=== PATIENT | female | born 1995 | race American Indian/Alaskan Native ===

== ENCOUNTER 2020-07-07 14:32 | Emergency (ER) | payer MEDICAID ==
--- NOTE | 2020-07-07 17:32 | Emergency Department Report ---
ED Abdominal Pain HPI - General Chief Complaint: Pain General Stated Complaint: FOOT/ABD/BACK PAIN Time Seen by Provider: 07/07/20 17:10 Source: patient Mode of arrival: Ambulatory Limitations: No Limitations - History of Present Illness Initial Comments: 24-year-old -[place] female with the past medical history of recurrent acid reflux off and on for the past few years asthma department complaining of progressively worsening onset not been able to get in with a primary care provider. Pain is now radiating to the right upper quadrant and radiates through to her back associated with nausea vomiting and fever sensations off and on. Ports no dysuria no hematuria no chest pain, palpitations, shortness of breath. MD Complaint: abdominal pain Radiation: none Migration to: no migration Quality: dull Consistency: constant Improves With: nothing Worsens With: nothing Associated Symptoms: denies other symptoms ED Review of Systems ROS: Stated complaint: FOOT/ABD/BACK PAIN Other details as noted in HPI Comment: All other systems reviewed and negative ED Past Medical Hx - Past Medical History Hx Hypertension: Yes Hx Asthma: Yes ED Physical Exam - General Limitations: No Limitations General appearance: alert, in no apparent distress - Head Head exam: Present: atraumatic, normocephalic - Eye Eye exam: Present: normal appearance, PERRL, EOMI Pupils: Present: normal accommodation - ENT ENT exam: Present: normal exam, mucous membranes moist - Neck Neck exam: Present: normal inspection - Respiratory Respiratory exam: Present: normal lung sounds bilaterally. Absent: respiratory distress, wheezes - Cardiovascular Cardiovascular Exam: Present: regular rate, normal rhythm. Absent: systolic murmur, diastolic murmur, rubs, gallop - GI/Abdominal GI/Abdominal exam: Present: soft, tenderness (Tenderness to the right upper quadrant), normal bowel sounds, other (Rios sign no). Absent: guarding, rebound, hyperactive bowel sounds, organomegaly, bruit - Extremities Exam Extremities exam: Present: normal inspection, normal capillary refill - Back Exam Back exam: Present: normal inspection. Absent: CVA tenderness (R), CVA tenderness (L), muscle spasm, paraspinal tenderness, vertebral tenderness - Neurological Exam Neurological exam: Present: alert, oriented X3, CN II-XII intact - Psychiatric Psychiatric exam: Present: normal affect, normal mood. Absent: manic - Skin Skin exam: Present: warm, dry, intact, normal color. Absent: rash, cyanosis, diaphoretic Critical care attestation.: If time is entered above; I have spent that time in minutes in the direct care of this critically ill patient, excluding procedure time. ED Disposition Condition: Stable
== END 2020-07-07 20:20 | disposition left against medical advice (07) ==
LOC: ED 14:32
DX: M54.9 Dorsalgia, unspecified (principal); Z53.21 Procedure and treatment not carried out due to patient leaving prior to being seen by health care provider